=== PATIENT | male | born 1950 | race Caucasian/White ===

== ENCOUNTER 2017-06-17 10:22 | Emergency (ER) | payer MEDICARE, MEDICAID ==
[~2017-06-17] VITALS: Ht 180.3 cm; Wt 113.0 kg
[2017-06-17 11:40] LABS: HEMATOCRIT 42.9 % (39.0-50.0); HEMOGLOBIN 15.2 g/dl (14.0-18.0); IMMATURE GRANULOCYTES 0.6 % (0.0-1.0); MEAN CELL VOLUME 96.8 fL CALC (80.0-100.0); MEAN CORPUSCULAR HGB 34.3 pG CALC (26.0-32.0); MEAN CORPUSCULAR HGB CONC 35.4 g/L CALC (32.0-36.0); NEUT# 5.08 thou/uL (1.82-7.42); RED BLOOD COUNT 4.43 mill/uL (4.70-6.10); RED CELL DISTRI WIDTH 12.2 % (11.5-15.5)
[2017-06-17 11:59] LABS: ACT PARTIAL THROMBO TIME 26.5 SECONDS (20.0-32.5); INTERNATIONAL NORMALIZED RATIO 0.9 RATIO (0.7-1.3); PROTHROMBIN TIME 10.2 SECONDS (9.0-12.5)
[2017-06-17 12:02] LABS: ALBUMIN 4.3 g/dL (3.2-5.0); ALKALINE PHOSPHATASE 133 u/l (38-126); AMYLASE 34 u/l (30-110); ANION GAP 17 (6-22 (CALC)); BILIRUBIN, TOTAL 1.4 mg/dL (0.0-1.4); BUN 14 mg/dL (8-23); BUN/CREATININE RATIO 20 (12-20 (CALC)); CALCIUM 9.5 mg/dL (8.4-10.2); CARBON DIOXIDE 26 mmol/l (22-30); CHLORIDE 99 mmol/l (95-108); CREATININE 0.7 mg/dL (0.7-1.3); ETHYL ALCOHOL 0 mg/dl (0-30); GFR > 60 ML/MIN (>=60 (CALC)); GFR FOR AFR.AMER. > 60 ML/MIN (>=60 (CALC)); GLUCOSE 97 mg/dL (82-115); LIPASE 32 u/l (23-300); POTASSIUM 3.9 mmol/l (3.5-5.1); SGOT/AST 37 u/l (19-48); SGPT/ALT 39 u/l (11-66); SODIUM 138 mmol/l (137-146); TOTAL PROTEIN 7.2 g/dL (6.3-8.2)
[2017-06-17] MEDS ORDERED: CIPROFLOXACN500 MG PO (12:17)
[2017-06-17] MEDS ORDERED: TRAMADOL HYDROC50 MG PO (12:17)
[2017-06-17] MEDS ORDERED: COLACE100 MG PO (12:17)
[2017-06-17] MEDS ORDERED: NEXIUM40 M1 PO (12:17)
[2017-06-17 12:18] VITALS: BP 188/83
== END 2017-06-17 12:24 | disposition home or self-care (01) ==
LOC: ED 10:22
PROVIDERS: Emergency Medicine
DX: K92.1 Melena (principal); N40.0 Benign prostatic hyperplasia without lower urinary tract symptoms

== ENCOUNTER 2017-07-11 12:55 | Day surgery (SDC) | payer MEDICARE, MEDICAID ==
[~2017-07-11] VITALS: Ht 180.3 cm; Wt 113.4 kg
[~2017-07-11 12:55] MED LIST: CIPROFLOXACN500 MG PO; COLACE100 MG PO; NEXIUM40 M1 PO; TRAMADOL HYDROC50 MG PO
[2017-07-11 16:26] VITALS: BP 155/96
== END 2017-07-11 16:45 | disposition home or self-care (01) ==
LOC: ENDO 12:55 → ORM 13:25 → ENDO 16:00
PROVIDERS: ATTEND Internal Medicine Gastroenterology
PROC: 0DBP8ZX Excision of Rectum, Via Natural or Artificial Opening Endoscopic, Diagnostic (ICD-10-PCS; principal; 2017-07-11)
DX: C21.8 Malignant neoplasm of overlapping sites of rectum, anus and anal canal (principal); K57.30 Diverticulosis of large intestine without perforation or abscess without bleeding

== ENCOUNTER 2018-02-27 19:18 | Emergency (ER) | payer MEDICARE, MEDICAID ==
[~2018-02-27] VITALS: Ht 180.3 cm; Wt 104.0 kg
[2018-02-27] MEDS ORDERED: LEVAQUIN500 MG PO (19:34)
[2018-02-27] MEDS ORDERED: AMLODIPINE5 MG PO (19:34)
[2018-02-27] MEDS ORDERED: EMBEDA 30-1.2 M1 CAP (19:35)
[2018-02-27] MEDS ORDERED: ESOMEPRAZOLE MA40 MG (19:35)
[2018-02-27] MEDS ORDERED: OXYCOD/APAP1 TA4 PO (19:36)
[2018-02-27] MEDS ORDERED: TAMSULOSIN HCL0.4 MG PO (19:36)
[2018-02-27] MEDS ORDERED: MYRBETRIQ25 MG (19:36)
[2018-02-27 21:07] LABS: HEMATOCRIT 37.1 % (39.0-50.0); IMMATURE GRANULOCYTES 4.3 % (0.0-1.0); MEAN CELL VOLUME 103.1 fL CALC (80.0-100.0); NEUT# 2.87 thou/uL (1.82-7.42); RED BLOOD COUNT 3.6 mill/uL (4.70-6.10); RED CELL DISTRI WIDTH 13.7 % (11.5-15.5)
[2018-02-27 21:19] LABS: HEMOGLOBIN 12.6 g/dl (14.0-18.0)
[2018-02-27 21:20] LABS: URINE BILIRUBIN - DIPSTICK NEGATIVE (NEGATIVE); URINE BLOOD DIPSTICK NEGATIVE (NEGATIVE); URINE COLOR YELLOW; URINE GLUCOSE - DIPSTICK NEGATIVE (NEGATIVE); URINE KETONE NEGATIVE (NEGATIVE); URINE LEUK ESTERASE NEGATIVE (NEGATIVE); URINE NITRITE - DIPSTICK NEGATIVE (Negative); URINE PROTEIN - DIPSTICK NEGATIVE (NEG-TRACE); URINE SPECIFIC GRAVITY <=1.005; URINE UROBILINOGEN - DIPSTICK 0.2 E.U./dL (0.2)
[2018-02-27 21:36] LABS: ALBUMIN 3.1 g/dL (3.2-5.0); ALKALINE PHOSPHATASE 133 u/l (38-126); ANION GAP 15 (6-22 (CALC)); BILIRUBIN, TOTAL 0.5 mg/dL (0.0-1.4); BUN 3 mg/dL (8-23); BUN/CREATININE RATIO 5 (12-20 (CALC)); CARBON DIOXIDE 29 mmol/l (22-30); CHLORIDE 98 mmol/l (95-108); CREATININE 0.7 mg/dL (0.7-1.3); GFR > 60 ML/MIN (>=60 (CALC)); GFR FOR AFR.AMER. > 60 ML/MIN (>=60 (CALC)); POTASSIUM 3.6 mmol/l (3.5-5.1); SGOT/AST 32 u/l (19-48); SGPT/ALT 31 u/l (11-66); SODIUM 139 mmol/l (137-146); TOTAL PROTEIN 6.2 g/dL (6.3-8.2)
[2018-02-27 21:43] LABS: URINE CLARITY CLEAR
[2018-02-27 21:48] LABS: MYOGLOBIN 39 ng/mL (0 - 121)
[2018-02-27 23:15] VITALS: BP 124/75
== END 2018-02-27 23:15 | disposition home or self-care (01) ==
LOC: ED 19:18
PROVIDERS: Emergency Medicine
DX: R60.0 Localized edema (principal); C20 Malignant neoplasm of rectum; Z79.899 Other long term (current) drug therapy; M79.89 Other specified soft tissue disorders; R06.02 Shortness of breath

== ENCOUNTER 2018-05-31 13:41 | Emergency (ER) | payer MEDICARE, MEDICAID ==
[~2018-05-31] VITALS: Ht 180.3 cm; Wt 95.0 kg
[~2018-05-31 13:41] MED LIST changes: +AMLODIPINE5 MG PO; +EMBEDA 30-1.2 M1 CAP; +ESOMEPRAZOLE MA40 MG; +LEVAQUIN500 MG PO; +MYRBETRIQ25 MG; +OXYCOD/APAP1 TA4 PO; +TAMSULOSIN HCL0.4 MG PO
[2018-05-31] MEDS ORDERED: CEPHALEXIN500 MG PO (14:28)
[2018-05-31 15:07] LABS: HEMATOCRIT 27.5 % (39.0-50.0); HEMOGLOBIN 8.7 g/dl (14.0-18.0); IMMATURE GRANULOCYTES 2.1 % (0.0-1.0); MEAN CELL VOLUME 113.2 fL CALC (80.0-100.0); MEAN CORPUSCULAR HGB 35.8 pG CALC (26.0-32.0); MEAN CORPUSCULAR HGB CONC 31.6 g/L CALC (32.0-36.0); NEUT# 2.15 thou/uL (1.82-7.42); RED BLOOD COUNT 2.43 mill/uL (4.70-6.10); RED CELL DISTRI WIDTH 17.8 % (11.5-15.5)
[2018-05-31 15:14] LABS: ANION GAP 7 (6-22 (CALC)); BUN 7 mg/dL (8-23); BUN/CREATININE RATIO 13 (12-20 (CALC)); CARBON DIOXIDE 30 mmol/l (22-30); CHLORIDE 102 mmol/l (95-108); CREATININE 0.5 mg/dL (0.7-1.3); GFR > 60 ML/MIN (>=60 (CALC)); GFR FOR AFR.AMER. > 60 ML/MIN (>=60 (CALC)); POTASSIUM 3.6 mmol/l (3.5-5.1); SODIUM 135 mmol/l (137-146)
[2018-05-31] MEDS ORDERED: K-TAB20 MEQ PO (16:20)
[2018-05-31] MEDS ORDERED: LASIX 40 MG TAB40 MG PO (16:20)
[2018-05-31 17:00] VITALS: BP 125/60
== END 2018-05-31 17:00 | disposition home or self-care (01) ==
LOC: ED 13:41
PROVIDERS: Family Medicine
DX: R60.0 Localized edema (principal); L60.0 Ingrowing nail; C20 Malignant neoplasm of rectum; I10 Essential (primary) hypertension; N40.0 Benign prostatic hyperplasia without lower urinary tract symptoms; Z92.21 Personal history of antineoplastic chemotherapy; R06.02 Shortness of breath

== ENCOUNTER → 2019-01-12 | Outpatient (REF) | payer MEDICARE, MEDICAID ==
[~2019-01-12] MED LIST changes: +CEPHALEXIN500 MG PO; -ESOMEPRAZOLE MA40 MG; +ESOMEPRAZOLE MA40 MG PO; +FUROSEMIDE40 MG PO; +K-TAB20 MEQ PO; +LASIX 40 MG TAB40 MG PO; +MORPHINE SULFAT30 M1 PO; +NUCYNTA ER150 MG PO
[2019-01-12 12:56] LABS: HEMATOCRIT 31.8 % (39.0-50.0); HEMOGLOBIN 10.5 g/dl (14.0-18.0); IMMATURE GRANULOCYTES 0.3 % (0.0-5.0); MEAN CELL VOLUME 104.3 fL CALC (80.0-100.0); MEAN CORPUSCULAR HGB 34.4 pG CALC (26.0-32.0); NEUT# 2.67 thou/uL (1.82-7.42); RED BLOOD COUNT 3.05 mill/uL (4.70-6.10); RED CELL DISTRI WIDTH 14.3 % (11.5-15.5)
[2019-01-12 13:13] LABS: ALBUMIN 3.2 g/dL (3.2-5.0); ALKALINE PHOSPHATASE 137 u/l (38-126); ANION GAP 13 (6-22 (CALC)); BILIRUBIN, TOTAL 0.9 mg/dL (0.0-1.4); BUN 5 mg/dL (8-23); BUN/CREATININE RATIO 9 (12-20 (CALC)); CARBON DIOXIDE 31 mmol/l (22-30); CHLORIDE 94 mmol/l (95-108); CREATININE 0.6 mg/dL (0.7-1.3); GFR > 60 ML/MIN (>=60 (CALC)); GFR FOR AFR.AMER. > 60 ML/MIN (>=60 (CALC)); POTASSIUM 3.6 mmol/l (3.5-5.1); SGOT/AST 22 u/l (19-48); SODIUM 135 mmol/l (137-146); TOTAL PROTEIN 5.8 g/dL (6.3-8.2)
== END | disposition home or self-care (01) ==
LOC: LAB 12:19
PROVIDERS: ATTEND Internal Medicine Medical Oncology
DX: C20 Malignant neoplasm of rectum (principal); D70.1 Agranulocytosis secondary to cancer chemotherapy; Z92.21 Personal history of antineoplastic chemotherapy

== ENCOUNTER → 2019-01-28 | Outpatient (REF) | payer MEDICARE, MEDICAID ==
[2019-01-28 17:06] LABS: HEMATOCRIT 31.5 % (39.0-50.0); HEMOGLOBIN 10.3 g/dl (14.0-18.0); IMMATURE GRANULOCYTES 0.9 % (0.0-5.0); MEAN CORPUSCULAR HGB 34.3 pG CALC (26.0-32.0); MEAN CORPUSCULAR HGB CONC 32.7 g/L CALC (32.0-36.0); NEUT# 2.25 thou/uL (1.82-7.42); RED CELL DISTRI WIDTH 15.6 % (11.5-15.5)
== END | disposition home or self-care (01) ==
LOC: LAB 15:29
PROVIDERS: ATTEND Internal Medicine Medical Oncology
DX: C20 Malignant neoplasm of rectum (principal); D70.1 Agranulocytosis secondary to cancer chemotherapy; Z92.21 Personal history of antineoplastic chemotherapy

== ENCOUNTER 2019-02-11 10:25 | Emergency (ER) | payer MEDICARE, MEDICAID ==
[~2019-02-11] VITALS: Ht 180.3 cm; Wt 72.7 kg
[~2019-02-11 10:25] MED LIST changes: -FUROSEMIDE40 MG PO; -MORPHINE SULFAT30 M1 PO; -NUCYNTA ER150 MG PO
[2019-02-11] MEDS ORDERED: FUROSEMIDE40 MG PO (11:16)
[2019-02-11] MEDS ORDERED: NUCYNTA ER150 MG PO (11:25)
[2019-02-11] MEDS ORDERED: MORPHINE SULFAT30 M1 PO (11:27)
[2019-02-11 11:34] LABS: HEMATOCRIT 31.9 % (39.0-50.0); HEMOGLOBIN 10.1 g/dl (14.0-18.0); IMMATURE GRANULOCYTES 0.8 % (0.0-5.0); MEAN CELL VOLUME 105.3 fL CALC (80.0-100.0); MEAN CORPUSCULAR HGB 33.3 pG CALC (26.0-32.0); MEAN CORPUSCULAR HGB CONC 31.7 g/L CALC (32.0-36.0); NEUT# 3.54 thou/uL (1.82-7.42); RED BLOOD COUNT 3.03 mill/uL (4.70-6.10); RED CELL DISTRI WIDTH 16.7 % (11.5-15.5)
[2019-02-11 12:28] LABS: ANION GAP 14 (6-22 (CALC)); BUN 9 mg/dL (8-23); BUN/CREATININE RATIO 14 (12-20 (CALC)); CARBON DIOXIDE 29 mmol/l (22-30); CHLORIDE 93 mmol/l (95-108); CREATININE 0.6 mg/dL (0.7-1.3); GFR > 60 ML/MIN (>=60 (CALC)); GFR FOR AFR.AMER. > 60 ML/MIN (>=60 (CALC)); POTASSIUM 4.3 mmol/l (3.5-5.1); SODIUM 132 mmol/l (137-146)
[2019-02-11 13:00] VITALS: BP 103/68
== END 2019-02-11 13:00 | disposition home or self-care (01) ==
LOC: ED 10:25
PROVIDERS: Family Medicine
PROC: 2W3DX1Z Immobilization of Left Lower Arm using Splint (ICD-10-PCS; principal; 2019-02-11)
DX: S60.222A Contusion of left hand, initial encounter (principal); S20.212A Contusion of left front wall of thorax, initial encounter; M79.642 Pain in left hand; R22.32 Localized swelling, mass and lump, left upper limb; R07.81 Pleurodynia; R42 Dizziness and giddiness; R55 Syncope and collapse; X50.1XXA Overexertion from prolonged static or awkward postures, initial encounter; Y92.009 Unspecified place in unspecified non-institutional (private) residence as the place of occurrence of the external cause

== ENCOUNTER → 2019-02-18 | Outpatient (REF) | payer MEDICARE, MEDICAID ==
[~2019-02-18] MED LIST changes: +FUROSEMIDE40 MG PO; +MORPHINE SULFAT30 M1 PO; +NUCYNTA ER150 MG PO
== END | disposition home or self-care (01) ==
LOC: DI 10:20
PROVIDERS: ATTEND Nurse Practitioner
DX: M25.532 Pain in left wrist (principal); M79.642 Pain in left hand; R07.81 Pleurodynia; S22.32XA Fracture of one rib, left side, initial encounter for closed fracture; Z92.21 Personal history of antineoplastic chemotherapy; M19.032 Primary osteoarthritis, left wrist

== ENCOUNTER 2019-03-20 11:22 | Emergency (ER) | payer MEDICARE, MEDICAID ==
[~2019-03-20] VITALS: Ht 180.3 cm; Wt 82.3 kg
[2019-03-20 12:10] LABS: HEMATOCRIT 32.9 % (39.0-50.0); HEMOGLOBIN 10.5 g/dl (14.0-18.0); IMMATURE GRANULOCYTES 0.4 % (0.0-5.0); MEAN CELL VOLUME 103.8 fL CALC (80.0-100.0); MEAN CORPUSCULAR HGB 33.1 pG CALC (26.0-32.0); MEAN CORPUSCULAR HGB CONC 31.9 g/L CALC (32.0-36.0); NEUT# 1.79 thou/uL (1.82-7.42); RED BLOOD COUNT 3.17 mill/uL (4.70-6.10); RED CELL DISTRI WIDTH 14.1 % (11.5-15.5); URINE BILIRUBIN - DIPSTICK NEGATIVE (NEGATIVE); URINE BLOOD DIPSTICK LARGE (NEGATIVE); URINE COLOR YELLOW; URINE GLUCOSE - DIPSTICK NEGATIVE (NEGATIVE); URINE KETONE NEGATIVE (NEGATIVE); URINE NITRITE - DIPSTICK NEGATIVE (Negative); URINE PH 8.5 (4.5-8.0); URINE PROTEIN - DIPSTICK 30 mg/dL (NEG-TRACE)
[2019-03-20 12:15] LABS: URINE LEUK ESTERASE SMALL (NEGATIVE)
[2019-03-20 12:18] LABS: URINE RBC TNTC RBC/hpf (0-5); URINE SQUAMOUS EPITHELIAL CELL FEW EPI/hpf (0-FEW)
[2019-03-20 12:54] LABS: ALBUMIN 3.1 g/dL (3.2-5.0); ALKALINE PHOSPHATASE 142 u/l (38-126); BILIRUBIN, TOTAL 0.9 mg/dL (0.0-1.4); BUN 7 mg/dL (8-23); BUN/CREATININE RATIO 16 (12-20 (CALC)); CARBON DIOXIDE 31 mmol/l (22-30); CHLORIDE 96 mmol/l (95-108); CREATININE 0.5 mg/dL (0.7-1.3); GFR > 60 ML/MIN (>=60 (CALC)); GFR FOR AFR.AMER. > 60 ML/MIN (>=60 (CALC)); PROTHROMBIN TIME 10.9 SECONDS (9.0-12.5); SGOT/AST 24 u/l (19-48); SODIUM 136 mmol/l (137-146); TOTAL PROTEIN 5.9 g/dL (6.3-8.2)
[2019-03-20 12:55] LABS: ANION GAP 12 (6-22 (CALC)); POTASSIUM 3.3 mmol/l (3.5-5.1)
[2019-03-20] MEDS ORDERED: PYRIDIUM200 MG PO (12:58)
[2019-03-20] MEDS ORDERED: KEFLEX250 MG PO (12:58)
[2019-03-20 13:08] VITALS: BP 122/77
== END 2019-03-20 13:16 | disposition home or self-care (01) ==
LOC: ED 11:22
PROVIDERS: Emergency Medicine
DX: R31.9 Hematuria, unspecified (principal); N34.2 Other urethritis; N40.0 Benign prostatic hyperplasia without lower urinary tract symptoms; Z85.048 Personal history of other malignant neoplasm of rectum, rectosigmoid junction, and anus; Z92.3 Personal history of irradiation

== ENCOUNTER 2019-05-08 23:12 | Emergency (ER) | payer MEDICARE, MEDICAID ==
[~2019-05-08] VITALS: Ht 180.3 cm; Wt 82.7 kg
[~2019-05-08 23:12] MED LIST changes: +KEFLEX250 MG PO; +PYRIDIUM200 MG PO
[2019-05-08] MEDS ORDERED: KLOR-CON 1010 MEQ PO (23:34)
[2019-05-09] MEDS ORDERED: MAGNESIUM296 ML/BTL PO (00:25)
[2019-05-09] MEDS ORDERED: FIBER CON625 MG PO (00:25)
[2019-05-09 00:45] VITALS: BP 142/67
== END 2019-05-09 00:45 | disposition home or self-care (01) ==
LOC: ED 23:12
DX: K59.00 Constipation, unspecified (principal); Z85.048 Personal history of other malignant neoplasm of rectum, rectosigmoid junction, and anus; Z92.3 Personal history of irradiation; Z92.21 Personal history of antineoplastic chemotherapy

== ENCOUNTER 2019-05-16 14:39 | Observation (INO) | payer MEDICARE, MEDICAID ==
[~2019-05-16] VITALS: Ht 180.3 cm; Wt 80.6 kg
[~2019-05-16 14:39] MED LIST changes: +FIBER CON625 MG PO; +KLOR-CON 1010 MEQ PO; +MAGNESIUM296 ML/BTL PO
[2019-05-16 15:34] LABS: HEMATOCRIT 31.1 % (39.0-50.0); HEMOGLOBIN 10.3 g/dl (14.0-18.0); IMMATURE GRANULOCYTES 0.3 % (0.0-5.0); MEAN CELL VOLUME 98.1 fL CALC (80.0-100.0); MEAN CORPUSCULAR HGB 32.5 pG CALC (26.0-32.0); MEAN CORPUSCULAR HGB CONC 33.1 g/L CALC (32.0-36.0); NEUT# 2.62 thou/uL (1.82-7.42); RED BLOOD COUNT 3.17 mill/uL (4.70-6.10); RED CELL DISTRI WIDTH 12.7 % (11.5-15.5)
[2019-05-16 15:36] LABS: URINE BILIRUBIN - DIPSTICK NEGATIVE (NEGATIVE); URINE BLOOD DIPSTICK LARGE (NEGATIVE); URINE GLUCOSE - DIPSTICK NEGATIVE (NEGATIVE); URINE KETONE NEGATIVE (NEGATIVE); URINE LEUK ESTERASE TRACE (NEGATIVE); URINE PH 5.5 (4.5-8.0); URINE PROTEIN - DIPSTICK NEGATIVE (NEG-TRACE)
[2019-05-16 15:40] LABS: URINE COLOR DK. YELLOW; URINE NITRITE - DIPSTICK POSITIVE (Negative)
[2019-05-16 15:49] LABS: URINE WBC 0-2 WBC/hpf (0-5)
[2019-05-16 16:00] LABS: ALBUMIN 3.4 g/dL (3.2-5.0); ALKALINE PHOSPHATASE 123 u/l (38-126); ANION GAP 11 (6-22 (CALC)); BILIRUBIN, TOTAL 0.6 mg/dL (0.0-1.4); BUN 11 mg/dL (8-23); BUN/CREATININE RATIO 23 (12-20 (CALC)); CARBON DIOXIDE 31 mmol/l (22-30); CHLORIDE 98 mmol/l (95-108); CREATININE 0.5 mg/dL (0.7-1.3); GFR > 60 ML/MIN (>=60 (CALC)); GFR FOR AFR.AMER. > 60 ML/MIN (>=60 (CALC)); POTASSIUM 3.9 mmol/l (3.5-5.1); SGOT/AST 21 u/l (19-48); SODIUM 136 mmol/l (137-146); TOTAL PROTEIN 6.1 g/dL (6.3-8.2)
[2019-05-16] MEDS ORDERED: MIRALAX3350 NF PO (19:11)
[2019-05-16] MEDS ORDERED: MILK OF MAG30 ML/UDC PO (19:12)
[2019-05-16 19:35] VITALS: BP 147/75
[2019-05-17 04:18] VITALS: BP 118/68
[2019-05-17 06:08] LABS: HEMOGLOBIN 10.1 g/dl (14.0-18.0); IMMATURE GRANULOCYTES 0.6 % (0.0-5.0); MEAN CORPUSCULAR HGB 32.3 pG CALC (26.0-32.0); MEAN CORPUSCULAR HGB CONC 32.6 g/L CALC (32.0-36.0); NEUT# 3.06 thou/uL (1.82-7.42); RED BLOOD COUNT 3.13 mill/uL (4.70-6.10); RED CELL DISTRI WIDTH 12.8 % (11.5-15.5)
[2019-05-17 06:23] LABS: ANION GAP 11 (6-22 (CALC)); BUN 12 mg/dL (8-23); BUN/CREATININE RATIO 25 (12-20 (CALC)); CARBON DIOXIDE 33 mmol/l (22-30); CHLORIDE 98 mmol/l (95-108); CREATININE 0.5 mg/dL (0.7-1.3); GFR > 60 ML/MIN (>=60 (CALC)); GFR FOR AFR.AMER. > 60 ML/MIN (>=60 (CALC)); SODIUM 138 mmol/l (137-146)
[2019-05-17 08:00] VITALS: BP 126/66
[2019-05-17 15:40] VITALS: BP 116/57
[2019-05-17 19:25] VITALS: BP 147/69
[2019-05-18 04:40] VITALS: BP 138/70
[2019-05-18 07:57] VITALS: BP 136/78
[2019-05-18] MEDS ORDERED: KEFLEX500 MG PO (14:30)
== END 2019-05-18 15:30 | disposition home or self-care (01) ==
LOC: ED 14:39 → ED-I 18:35 → ED 18:48 → MS2 18:49
PROVIDERS: Emergency Medicine; ADMIT Internal Medicine; ATTEND Internal Medicine
DX: N49.2 Inflammatory disorders of scrotum (principal); C20 Malignant neoplasm of rectum; I89.0 Lymphedema, not elsewhere classified; K59.00 Constipation, unspecified; M19.90 Unspecified osteoarthritis, unspecified site; Z92.3 Personal history of irradiation; Z92.21 Personal history of antineoplastic chemotherapy
CPT/HCPCS: J1650; S0164

== ENCOUNTER 2019-12-29 | Emergency (ER) | payer MEDICARE, MEDICAID ==
[~2019-12-29] MED LIST changes: +KEFLEX500 MG PO; +MILK OF MAG30 ML/UDC PO; +MIRALAX3350 NF PO
[2019-12-29] MEDS ORDERED: TRAMADOL HCL50 MG PO (15:36)
[2019-12-29] MEDS ORDERED: DITROPAN XL10 MG PO (15:37)
[2019-12-29] MEDS ORDERED: TAMSULOSIN0.4 MG PO (15:38)
[2019-12-29 16:07] LABS: IMMATURE GRANULOCYTES 1.1 % (0.0-5.0); MEAN CORPUSCULAR HGB 28.5 pG CALC (26.0-32.0); MEAN CORPUSCULAR HGB CONC 34.2 g/L CALC (32.0-36.0); NEUT# 9.12 thou/uL (1.82-7.42); RED BLOOD COUNT 4.63 mill/uL (4.70-6.10); RED CELL DISTRI WIDTH 15.3 % (11.5-15.5)
[2019-12-29 16:21] LABS: HEMATOCRIT 38.6 % (39.0-50.0); HEMOGLOBIN 13.2 g/dl (14.0-18.0); MEAN CELL VOLUME 83.4 fL CALC (80.0-100.0)
[2019-12-29 16:28] LABS: ALBUMIN 3.2 g/dL (3.2-5.0); ALKALINE PHOSPHATASE 130 u/l (38-126); AMYLASE 40 u/l (30-110); BUN 19 mg/dL (8-23); BUN/CREATININE RATIO 39 (12-20 (CALC)); CARBON DIOXIDE 31 mmol/l (22-30); CREATININE 0.5 mg/dL (0.7-1.3); GFR > 60 ML/MIN (>=60 (CALC)); GFR FOR AFR.AMER. > 60 ML/MIN (>=60 (CALC)); LIPASE < 10 u/l (23-300); POTASSIUM 3.8 mmol/l (3.5-5.1); SGOT/AST 19 u/l (19-48); TOTAL PROTEIN 6.2 g/dL (6.3-8.2)
[2019-12-29 16:34] LABS: ANION GAP 12 (6-22 (CALC)); BILIRUBIN, TOTAL 1.8 mg/dL (0.0-1.4); CHLORIDE 83 mmol/l (95-108); SODIUM 122 mmol/l (137-146)
[2019-12-29 16:40] LABS: MYOGLOBIN 44 ng/mL (0 - 121)
== END 2019-12-29 20:00 | disposition home or self-care (01) ==
PROVIDERS: Emergency Medicine
DX: R53.1 Weakness (principal); C20 Malignant neoplasm of rectum; G93.9 Disorder of brain, unspecified; R91.8 Other nonspecific abnormal finding of lung field; E87.1 Hypo-osmolality and hyponatremia; B37.0 Candidal stomatitis
CPT/HCPCS: Q9967